=== PATIENT | female | born 1980 | race African-American/Black ===

== ENCOUNTER 2017-01-19 21:11 | Emergency (ER) | payer OTHER ==
[2017-01-19 20:50] LABS: INFLUENZA A SCREEN POSITIVE (NEGATIVE); INFLUENZA B SCREEN NEGATIVE (NEGATIVE)
== END 2017-01-19 21:30 | disposition home or self-care (01) ==
LOC: ER 21:11
PROVIDERS: Nurse Practitioner Acute Care
DX: J10.1 Influenza due to other identified influenza virus with other respiratory manifestations (principal)
CPT/HCPCS: 71020; 87070; 87804; 87880; 99284